=== PATIENT | male | born 1945 | race Two or more races ===

== ENCOUNTER 2023-08-23 13:11 | Emergency (ER) | payer OTHER, MEDICAID ==
[~2023-08-23] VITALS: Ht 160 cm; Wt 61.9 kg
[2023-08-23] MEDS ORDERED: SODIUM CHLORIDE 0.9% 1,000 ML IV ONE (13:45)
[2023-08-23 14:21] LABS: Basophils # (auto) 0 10 ^3/uL (0-0.2); Basophils % (auto) 0.2 % (0.0-2.0); Eosinophils # (auto) 0.1 10 ^3/uL (0-0.8); Eosinophils % (auto) 1.1 % (0.0-7.0); Hematocrit 43.7 % (41.0-53.0); Hemoglobin 15.3 g/dL (13.5-17.5); Lymphocytes # (auto) 3.6 10 ^3/uL (0.4-5.4); Lymphocytes % (auto) 34.2 % (10.0-50.0); Mean Corpuscular Hemoglobin 31.7 pg (28.0-32.0); Mean Corpuscular Hgb Conc. 34.9 g/dL (32.0-36.0); Mean Corpuscular Volume 90.9 fL (80.0-100.0); Monocytes # (auto) 0.7 10 ^3/uL (0-1.3); Monocytes % (auto) 6.9 % (0.0-12.0); Neutrophils # (auto) 6.1 10 ^3/uL (1.6-8.6); Neutrophils % (auto) 57.6 % (37.0-80.0); Nucleated Red Blood Cells % 0.1 %; Red Blood Cells 4.81 10^6/uL (4.5-5.90); Red Cell Distribution Width 12.7 % (11.8-14.3); White Blood Cell 10.6 10^3/uL (4.4-10.8)
[2023-08-23 14:27] VITALS: BP 146/99; PULSE 103; RESP 18; O2SAT 99
[2023-08-23 14:45] LABS: Alanine Aminotransferase 21 U/L (7-40); Albumin 3.9 g/dL (3.2-4.8); Alkaline Phosphatase 84 U/L (46-116); Anion Gap 9 (5-15); Aspartate Aminotransferase 24 U/L (13-40); BUN/Creatinine Ratio 33.9 (10.0-20.0); Bilirubin, Total 1.6 mg/dL (0.2-1.0); Blood Urea Nitrogen 38 mg/dL (9-23); Calcium 9.1 mg/dL (8.5-10.1); Carbon Dioxide 29 mmol/L (20-30); Chloride 98 mmol/L (98-107); Glucose 203 mg/dL (74-106); Potassium 3.8 mmol/L (3.5-5.1); Sodium 136 mmol/L (136-145)
== END 2023-08-24 00:47 | disposition left against medical advice (07) ==
LOC: ER 13:11
DX: K59.00 Constipation, unspecified (principal); Z53.21 Procedure and treatment not carried out due to patient leaving prior to being seen by health care provider
CPT/HCPCS: 36415; 74176; 80053; 84484; 85025

== ENCOUNTER 2023-09-04 10:15 | Emergency (ER) | payer OTHER, MEDICAID ==
[~2023-09-04] VITALS: Ht 160 cm; Wt 68.1 kg
[2023-09-04 13:08] LABS: Basophils # (auto) 0 10 ^3/uL (0-0.2); Basophils % (auto) 0.3 % (0.0-2.0); Eosinophils # (auto) 0 10 ^3/uL (0-0.8); Eosinophils % (auto) 0.2 % (0.0-7.0); Hematocrit 47.3 % (41.0-53.0); Hemoglobin 16.7 g/dL (13.5-17.5); Lymphocytes # (auto) 1.9 10 ^3/uL (0.4-5.4); Lymphocytes % (auto) 25.1 % (10.0-50.0); Mean Corpuscular Hemoglobin 31.6 pg (28.0-32.0); Mean Corpuscular Hgb Conc. 35.3 g/dL (32.0-36.0); Mean Corpuscular Volume 89.4 fL (80.0-100.0); Monocytes # (auto) 0.4 10 ^3/uL (0-1.3); Monocytes % (auto) 5.2 % (0.0-12.0); Neutrophils # (auto) 5.2 10 ^3/uL (1.6-8.6); Neutrophils % (auto) 69.2 % (37.0-80.0); Nucleated Red Blood Cells % 0.5 %; Red Blood Cells 5.29 10^6/uL (4.5-5.90); Red Cell Distribution Width 12.7 % (11.8-14.3); White Blood Cell 7.5 10^3/uL (4.4-10.8)
[2023-09-04] MEDS ORDERED: METOCLOPRAMIDE HCL 5MG/ml INJ 2ml VIAL IV ONE (13:15)
[2023-09-04] MEDS ORDERED: SODIUM CHLORIDE 0.9% 1,000 ML IV ONE (13:15)
[2023-09-04] MEDS ORDERED: SODIUM CHLORIDE 0.9% 500 ML IVB ONE (13:15)
[2023-09-04] MEDS ORDERED: KETOROLAC TROMETH 30 MG/ML 1ML VIAL IV ONE (13:15)
[2023-09-04 13:25] LABS: Alanine Aminotransferase 16 U/L (7-40); Albumin 4.3 g/dL (3.2-4.8); Alkaline Phosphatase 90 U/L (46-116); Anion Gap 9 (5-15); Aspartate Aminotransferase 20 U/L (13-40); BUN/Creatinine Ratio 16.5 (10.0-20.0); Blood Urea Nitrogen 16 mg/dL (9-23); Calcium 9.4 mg/dL (8.7-10.4); Carbon Dioxide 28 mmol/L (20-30); Chloride 98 mmol/L (98-107); Glucose 203 mg/dL (74-106); Lipase 39 U/L (12-53); Magnesium 2.3 mg/dL (1.6-2.6); Potassium 3.4 mmol/L (3.5-5.1); Sodium 135 mmol/L (136-145)
[2023-09-04 13:26] LABS: Bilirubin, Total 2.1 mg/dL (0.2-1.0)
[2023-09-04 13:49] LABS: Amylase 47 U/L (30-118)
[2023-09-04 17:00] VITALS: PULSE 93; RESP 20; O2SAT 96
[2023-09-04] MEDS ORDERED: PANT1INJ3 IV (17:12)
[2023-09-04] MEDS ORDERED: METO-281 PO (17:12)
[2023-09-04] MEDS ORDERED: OLME40TA78 PO (17:12)
[2023-09-04] MEDS ORDERED: METF-490 PO (17:12)
[2023-09-04] MEDS ORDERED: TAMS-35 PO (17:12)
[2023-09-04] MEDS ORDERED: CEFD300C2 PO (17:12)
[2023-09-04 19:35] VITALS: PULSE 84; RESP 19; O2SAT 95
[2023-09-04 22:10] VITALS: BP 127/60; PULSE 75; RESP 17; O2SAT 97
== END 2023-09-04 22:22 | disposition home or self-care (01) ==
LOC: ER 10:15
DX: K80.20 Calculus of gallbladder without cholecystitis without obstruction (principal); K29.70 Gastritis, unspecified, without bleeding; E11.65 Type 2 diabetes mellitus with hyperglycemia; I10 Essential (primary) hypertension; K40.20 Bilateral inguinal hernia, without obstruction or gangrene, not specified as recurrent; E87.6 Hypokalemia; E80.6 Other disorders of bilirubin metabolism; Z86.73 Personal history of transient ischemic attack (TIA), and cerebral infarction without residual deficits
CPT/HCPCS: 36415; 76705; 80053; 82150; 83690; 83735; 84484; 85025; 93005; 96361; 96374; 96375; 99285; J1885; J2765; J7030; J7040

== ENCOUNTER 2023-09-09 11:19 | Inpatient (IN) | payer OTHER, MEDICAID ==
[~2023-09-09] VITALS: Ht 160 cm; Wt 68.5 kg
[~2023-09-09 11:19] MED LIST: CEFD300C2 PO; METF-490 PO; METO-281 PO; OLME40TA78 PO; PANT1INJ3 IV; TAMS-35 PO
[2023-09-09] MEDS ORDERED: OCTREOTIDE ACETATE 100 MCG in SODIUM CHL 0.9% 50 ML IV ONE (12:15)
[2023-09-09 12:18] LABS: Basophils # (auto) 0 10 ^3/uL (0-0.2); Basophils % (auto) 0.1 % (0.0-2.0); Eosinophils # (auto) 0.1 10 ^3/uL (0-0.8); Eosinophils % (auto) 1.5 % (0.0-7.0); Hematocrit 41.1 % (41.0-53.0); Hemoglobin 14.3 g/dL (13.5-17.5); Lymphocytes # (auto) 2.4 10 ^3/uL (0.4-5.4); Lymphocytes % (auto) 41.9 % (10.0-50.0); Mean Corpuscular Hemoglobin 31.3 pg (28.0-32.0); Mean Corpuscular Hgb Conc. 34.8 g/dL (32.0-36.0); Mean Corpuscular Volume 89.8 fL (80.0-100.0); Monocytes # (auto) 0.3 10 ^3/uL (0-1.3); Monocytes % (auto) 5.8 % (0.0-12.0); Neutrophils # (auto) 2.8 10 ^3/uL (1.6-8.6); Neutrophils % (auto) 50.7 % (37.0-80.0); Nucleated Red Blood Cells % 0.2 %; Red Blood Cells 4.58 10^6/uL (4.5-5.90); White Blood Cell 5.6 10^3/uL (4.4-10.8)
[2023-09-09 12:35] LABS: Alanine Aminotransferase 17 U/L (7-40); Albumin 3.7 g/dL (3.2-4.8); Alkaline Phosphatase 78 U/L (46-116); Anion Gap 8 (5-15); Aspartate Aminotransferase 16 U/L (13-40); BUN/Creatinine Ratio 19.5 (10.0-20.0); Blood Urea Nitrogen 22 mg/dL (9-23); Carbon Dioxide 29 mmol/L (20-30); Chloride 100 mmol/L (98-107); Glucose 232 mg/dL (74-106); Lipase 35 U/L (12-53); Magnesium 1.9 mg/dL (1.6-2.6); Potassium 3.5 mmol/L (3.5-5.1); Sodium 137 mmol/L (136-145)
[2023-09-09 12:36] LABS: Bilirubin, Total 1.6 mg/dL (0.2-1.0); INR 1.07 (0.9-1.15); Prothrombin Time 11.2 sec (9.3-11.8); Total Protein 6.6 g/dL (5.7-8.2)
[2023-09-09 13:22] VITALS: PULSE 85; RESP 15; O2SAT 98
[2023-09-09] MEDS ORDERED: PANTOPRAZOLE 80 MG in SODIUM CHL 0.9% 100 ML IV ONE (13:30)
[2023-09-09] MEDS ORDERED: PANTOPRAZOLE 40mg/50ML NS AE 50 ML IV ONE (13:30)
[2023-09-09] MEDS: OCTREOTIDE ACETATE 500 MCG in SODIUM CHL 0.9% 99 ML IV SCH (14:02)
[2023-09-09 19:30] VITALS: PULSE 90; RESP 16; O2SAT 97
[2023-09-09] MEDS: SODIUM CHLORIDE 0.9% 1,000 ML IV SCH (19:45)
[2023-09-09] MEDS ORDERED: DEXTROSE (50%) 50ML SYRG IV PRN (19:45)
[2023-09-09 20:43] LABS: Blood Alcohol < 3.0 mg/dL (<10)
[2023-09-09 20:45] LABS: Phosphorus 3.3 mg/dL (2.4-5.1)
[2023-09-09 20:49] LABS: Free T4 (Free Thyroxine) 1.33 ng/dL (0.89-1.76)
[2023-09-09 21:11] LABS: Erythrocyte Sedimentation Rate 11 mm/hr (0-20)
[2023-09-09] MEDS ORDERED: amLODIPine BESYLATE 5 MG TAB PO ONE (23:30)
[2023-09-09] MEDS ORDERED: OCTREOTIDE ACETATE 500 MCG/ML VL ONE (23:54)
[2023-09-09 23:59] LABS: Urine Bacteria NONE SEEN /hpf (None Seen); Urine Blood Negative /uL (Negative); Urine Clarity Clear (Clear); Urine Color Yellow (Yellow); Urine Hyaline Cast MOD /lpf (0 - 2); Urine Mucus FEW (None Seen); Urine Protein, UAD TRACE (Negative); Urine Specific Gravity 1.021 (1.001-1.035); Urine WBC 8 /hpf (0 - 3); Urine pH 5.5 (5.0-8.0)
[2023-09-10 00:04] LABS: Amphetamine Screen, Urine Neg (NEGATIVE); Barbiturate Scree,Urine Neg (NEGATIVE); Benzodiazephine Screen, Urine Neg (NEGATIVE); Cocaine Screen, Urine Neg (NEGATIVE); Opiate Scree,Urine Neg (NEGATIVE)
[2023-09-10 00:05] LABS: Cannabinoid Screen, Urine Neg (NEGATIVE); Phencyclidine Screen, Urine Neg (NEGATIVE)
[2023-09-10] MEDS: OCTREOTIDE ACETATE 500 MCG in SODIUM CHL 0.9% 99 ML IV SCH ×3 (00:09→18:41)
[2023-09-10] MEDS: ACCU-CHEK COMFORT CURVE STRIP VI SCH ×5 (00:18→23:07)
[2023-09-10] MEDS: hydrALAZINE HCL 20 MG/ML VL IV PRN ×2 (03:23→17:09)
[2023-09-10] MEDS: SODIUM CHLORIDE 0.9% 1,000 ML IV SCH ×3 (05:45→23:07)
[2023-09-10] MEDS: InsuLIN REG 1unit/0.01ml Soln (100units/ml) SC SCH ×5 (06:18→23:07)
[2023-09-10] MEDS: PANTOPRAZOLE 40 MG/10 ML VIAL INJ IV SCH ×2 (10:06→23:00)
[2023-09-10 11:22] LABS: Basophils # (auto) 0 10 ^3/uL (0-0.2); Eosinophils # (auto) 0.1 10 ^3/uL (0-0.8); Eosinophils % (auto) 2.6 % (0.0-7.0); Hematocrit 39.8 % (41.0-53.0); Hemoglobin 13.6 g/dL (13.5-17.5); Lymphocytes # (auto) 2.2 10 ^3/uL (0.4-5.4); Lymphocytes % (auto) 40.6 % (10.0-50.0); Mean Corpuscular Hgb Conc. 34.1 g/dL (32.0-36.0); Mean Corpuscular Volume 90.9 fL (80.0-100.0); Monocytes # (auto) 0.5 10 ^3/uL (0-1.3); Monocytes % (auto) 8.5 % (0.0-12.0); Neutrophils # (auto) 2.6 10 ^3/uL (1.6-8.6); Neutrophils % (auto) 48.3 % (37.0-80.0); Nucleated Red Blood Cells % 0.2 %; Red Blood Cells 4.38 10^6/uL (4.5-5.90); Red Cell Distribution Width 12.8 % (11.8-14.3); White Blood Cell 5.4 10^3/uL (4.4-10.8)
[2023-09-10 11:37] LABS: Alanine Aminotransferase 14 U/L (7-40); Alkaline Phosphatase 60 U/L (46-116); Calcium 8.6 mg/dL (8.5-10.1); Carbon Dioxide 27 mmol/L (20-30); Chloride 108 mmol/L (98-107); Glucose 96 mg/dL (74-106)
[2023-09-10 11:38] LABS: Albumin 3.3 g/dL (3.2-4.8); Anion Gap 6 (5-15); Aspartate Aminotransferase 16 U/L (13-40); BUN/Creatinine Ratio 14.1 (10.0-20.0); Bilirubin, Total 1.6 mg/dL (0.2-1.0); Potassium 3.3 mmol/L (3.5-5.1); Sodium 141 mmol/L (136-145); Total Protein 5.9 g/dL (5.7-8.2)
[2023-09-10] MEDS: LOSARTAN POTASSIUM 25 MG TAB PO SCH (11:42)
[2023-09-10 11:43] LABS: Blood Urea Nitrogen 9 mg/dL (9-23)
[2023-09-10] MEDS ORDERED: ASPirin 325 MG TAB PO ONE (12:00)
[2023-09-10] MEDS: ASPirin 81 mg TAB PO SCH (12:00)
[2023-09-10] MEDS ORDERED: IOHEXOL 350 MG/ML 100ML IJ ONE (12:08)
[2023-09-10] MEDS ORDERED: POTASSIUM CHL 20 Meq TABLET PO ONE (13:30)
[2023-09-10] MEDS: TAMSULOSIN HYDROCHLORIDE 0.4 MG CAP PO SCH (17:02)
[2023-09-10 18:36] LABS: Hematocrit 42.3 % (41.0-53.0); Hemoglobin 14.6 g/dL (13.5-17.5)
[2023-09-10 20:00] VITALS: PULSE 92; RESP 17; O2SAT 93
[2023-09-10 22:42] VITALS: PULSE 95; RESP 18; O2SAT 95
[2023-09-11] VITALS (7 sets, daily range): BP systolic 112–154; BP diastolic 67–87; PULSE 71–115; RESP 17–20; TEMP 97.5–98.7; O2SAT 95–99
[2023-09-11] MEDS ORDERED: MORPHINE SULFATE INJ 2 MG/ml SYRG IV PRN (00:15)
[2023-09-11 01:02] LABS: Hematocrit 40.5 % (41.0-53.0); Hemoglobin 14.2 g/dL (13.5-17.5)
[2023-09-11 03:06] LABS: PSA Free 0.57 ng/mL; Prostate Specific Antigen 2.2 ng/mL (0.0-4.0)
[2023-09-11 03:06] LABS: RPR Non Reactive (Non Reactive)
[2023-09-11] MEDS: OCTREOTIDE ACETATE 500 MCG in SODIUM CHL 0.9% 99 ML IV SCH ×3 (03:53→23:43)
[2023-09-11] MEDS: InsuLIN REG 1unit/0.01ml Soln (100units/ml) SC SCH ×4 (05:56→23:35)
[2023-09-11] MEDS: ACCU-CHEK COMFORT CURVE STRIP VI SCH ×4 (05:56→23:34)
[2023-09-11 06:41] LABS: Basophils # (auto) 0 10 ^3/uL (0-0.2); Basophils % (auto) 0.2 % (0.0-2.0); Eosinophils # (auto) 0.1 10 ^3/uL (0-0.8); Eosinophils % (auto) 1.6 % (0.0-7.0); Hematocrit 39.6 % (41.0-53.0); Hemoglobin 13.4 g/dL (13.5-17.5); Lymphocytes # (auto) 2.1 10 ^3/uL (0.4-5.4); Lymphocytes % (auto) 40.1 % (10.0-50.0); Mean Corpuscular Hemoglobin 30.7 pg (28.0-32.0); Mean Corpuscular Hgb Conc. 33.9 g/dL (32.0-36.0); Mean Corpuscular Volume 90.7 fL (80.0-100.0); Monocytes # (auto) 0.4 10 ^3/uL (0-1.3); Monocytes % (auto) 8.1 % (0.0-12.0); Neutrophils # (auto) 2.6 10 ^3/uL (1.6-8.6); Nucleated Red Blood Cells % 0.1 %; Red Blood Cells 4.37 10^6/uL (4.5-5.90); White Blood Cell 5.3 10^3/uL (4.4-10.8)
[2023-09-11 06:55] LABS: Alkaline Phosphatase 65 U/L (46-116); Anion Gap 8 (5-15); BUN/Creatinine Ratio 10.4 (10.0-20.0); Blood Urea Nitrogen 7 mg/dL (9-23); Carbon Dioxide 26 mmol/L (20-30); Chloride 107 mmol/L (98-107); Glucose 127 mg/dL (74-106); Potassium 3.3 mmol/L (3.5-5.1); Sodium 141 mmol/L (136-145)
[2023-09-11 06:56] LABS: Albumin 3.2 g/dL (3.2-4.8); Aspartate Aminotransferase 16 U/L (13-40); Bilirubin, Total 1.9 mg/dL (0.2-1.0); Total Protein 5.8 g/dL (5.7-8.2)
[2023-09-11 07:06] LABS: Homocyst(e)ine 19.3 umol/L (0.0-19.2)
[2023-09-11 07:13] LABS: Alanine Aminotransferase 9 U/L (7-40)
[2023-09-11] MEDS: ASPirin 81 mg TAB PO SCH (09:37)
[2023-09-11] MEDS: PANTOPRAZOLE 40 MG/10 ML VIAL INJ IV SCH ×2 (09:43→23:16)
[2023-09-11] MEDS: LOSARTAN POTASSIUM 25 MG TAB PO SCH (09:43)
[2023-09-11] MEDS: SODIUM CHLORIDE 0.9% 1,000 ML IV SCH ×2 (09:45→20:47)
[2023-09-11 11:51] LABS: Hematocrit 39.6 % (41.0-53.0); Hemoglobin 13.6 g/dL (13.5-17.5)
[2023-09-11] MEDS: hydrALAZINE HCL 20 MG/ML VL IV PRN (17:02)
[2023-09-11] MEDS: TAMSULOSIN HYDROCHLORIDE 0.4 MG CAP PO SCH (17:42)
[2023-09-11] MEDS ORDERED: ONDANSETRON HCL 4 MG/2 ML VIAL IV PRN (18:45)
[2023-09-11] MEDS ORDERED: POTASSIUM CHLORIDE 40 MEQ, LIDOCAINE 1% (LOCAL ANESTH.) 4 ML in SODIUM CHL 0.9% 250 ML IV ONE (19:15)
[2023-09-11 19:24] LABS: Hematocrit 46.5 % (41.0-53.0); Hemoglobin 15.4 g/dL (13.5-17.5)
[2023-09-11] MEDS ORDERED: PROMETHAZINE HCL 25 MG/ML 1ML IV ONE (23:00)
[2023-09-11] MEDS: POTASSIUM CHL 20MEQ/100ML 100 ML IV SCH (23:16)
[2023-09-12] VITALS (7 sets, daily range): BP systolic 104–177; BP diastolic 69–88; PULSE 26–100; RESP 16–20; TEMP 96.8–98.4; O2SAT 96–97
[2023-09-12] MEDS: POTASSIUM CHL 20MEQ/100ML 100 ML IV SCH (02:04)
[2023-09-12] MEDS: ACCU-CHEK COMFORT CURVE STRIP VI SCH ×3 (05:04→18:13)
[2023-09-12] MEDS: SODIUM CHLORIDE 0.9% 1,000 ML IV SCH ×2 (05:04→18:16)
[2023-09-12] MEDS: InsuLIN REG 1unit/0.01ml Soln (100units/ml) SC SCH ×3 (05:05→18:00)
[2023-09-12 06:18] LABS: Basophils # (auto) 0 10 ^3/uL (0-0.2); Basophils % (auto) 0.2 % (0.0-2.0); Eosinophils # (auto) 0 10 ^3/uL (0-0.8); Eosinophils % (auto) 0.3 % (0.0-7.0); Hematocrit 38.5 % (41.0-53.0); Hemoglobin 13.3 g/dL (13.5-17.5); Lymphocytes # (auto) 1.9 10 ^3/uL (0.4-5.4); Lymphocytes % (auto) 32.9 % (10.0-50.0); Mean Corpuscular Hemoglobin 31.4 pg (28.0-32.0); Mean Corpuscular Hgb Conc. 34.5 g/dL (32.0-36.0); Monocytes # (auto) 0.3 10 ^3/uL (0-1.3); Monocytes % (auto) 5.9 % (0.0-12.0); Neutrophils # (auto) 3.5 10 ^3/uL (1.6-8.6); Neutrophils % (auto) 60.7 % (37.0-80.0); Nucleated Red Blood Cells % 0.2 %; Red Blood Cells 4.23 10^6/uL (4.5-5.90); Red Cell Distribution Width 12.8 % (11.8-14.3); White Blood Cell 5.7 10^3/uL (4.4-10.8)
[2023-09-12 07:12] LABS: Alkaline Phosphatase 59 U/L (46-116); Anion Gap 8 (5-15); Aspartate Aminotransferase 14 U/L (13-40); BUN/Creatinine Ratio 12.3 (10.0-20.0); Blood Urea Nitrogen 8 mg/dL (9-23); Calcium 7.8 mg/dL (8.7-10.4); Carbon Dioxide 22 mmol/L (20-30); Chloride 108 mmol/L (98-107); Glucose 141 mg/dL (74-106); Magnesium 1.5 mg/dL (1.6-2.6); Potassium 4.1 mmol/L (3.5-5.1); Sodium 138 mmol/L (136-145)
[2023-09-12 07:13] LABS: Total Protein 5.4 g/dL (5.7-8.2)
[2023-09-12 07:23] LABS: Alanine Aminotransferase < 9 U/L (7-40)
[2023-09-12 08:34] LABS: Bilirubin, Total 1.5 mg/dL (0.2-1.0)
[2023-09-12] MEDS: ASPirin 81 mg TAB PO SCH (11:09)
[2023-09-12] MEDS: OCTREOTIDE ACETATE 500 MCG in SODIUM CHL 0.9% 99 ML IV SCH ×3 (11:09→22:47)
[2023-09-12] MEDS: PANTOPRAZOLE 40 MG/10 ML VIAL INJ IV SCH ×2 (11:09→22:33)
[2023-09-12] MEDS: LOSARTAN POTASSIUM 25 MG TAB PO SCH (11:09)
[2023-09-12] MEDS: TAMSULOSIN HYDROCHLORIDE 0.4 MG CAP PO SCH (18:16)
[2023-09-12] MEDS ORDERED: PROMETHAZINE HCL 25 MG/ML 1ML IV PRN (19:30)
[2023-09-12] MEDS ORDERED: POLYETHYLENE GLYCOL 17 GM PWDR PO PRN (19:30)
[2023-09-12] MEDS: hydrALAZINE HCL 20 MG/ML VL IV PRN (22:34)
[2023-09-13] MEDS: ACCU-CHEK COMFORT CURVE STRIP VI SCH ×4 (00:14→18:43)
[2023-09-13] MEDS ORDERED: SODIUM CHLORIDE 0.9% 500 ML IV ONE (00:15)
[2023-09-13] MEDS: SODIUM CHLORIDE 0.9% 1,000 ML IV SCH ×3 (00:41→21:52)
[2023-09-13 05:00] VITALS: BP 116/74; PULSE 86; RESP 17; TEMP 98; O2SAT 96
[2023-09-13] MEDS: InsuLIN REG 1unit/0.01ml Soln (100units/ml) SC SCH ×4 (06:00→18:00)
[2023-09-13 08:00] VITALS: PULSE 75; RESP 18
[2023-09-13 09:00] VITALS: BP 119/58; PULSE 77; RESP 17; TEMP 98.6; O2SAT 93
[2023-09-13] MEDS: ASPirin 81 mg TAB PO SCH (09:15)
[2023-09-13] MEDS: PANTOPRAZOLE 40 MG/10 ML VIAL INJ IV SCH ×2 (09:15→21:51)
[2023-09-13] MEDS: LOSARTAN POTASSIUM 25 MG TAB PO SCH (09:16)
[2023-09-13 11:21] LABS: Hepatitis B Core Total AB Negative (Negative)
[2023-09-13 12:53] VITALS: BP 109/62; PULSE 87; RESP 17; TEMP 97.4; O2SAT 98
[2023-09-13 17:00] VITALS: BP 128/80; PULSE 96; RESP 17; TEMP 97.9; O2SAT 100
[2023-09-13] MEDS: OCTREOTIDE ACETATE 500 MCG in SODIUM CHL 0.9% 99 ML IV SCH (18:42)
[2023-09-13] MEDS: TAMSULOSIN HYDROCHLORIDE 0.4 MG CAP PO SCH (18:42)
[2023-09-13 22:00] VITALS: BP 175/95; PULSE 81; RESP 16; TEMP 97.6; O2SAT 95
[2023-09-14] VITALS (9 sets, daily range): BP systolic 117–183; BP diastolic 53–87; PULSE 69–94; RESP 16–18; TEMP 97.6–98.4; O2SAT 96–98
[2023-09-14] MEDS: ACCU-CHEK COMFORT CURVE STRIP VI SCH ×5 (01:03→23:12)
[2023-09-14] MEDS: InsuLIN REG 1unit/0.01ml Soln (100units/ml) SC SCH ×5 (01:03→23:12)
[2023-09-14 04:33] LABS: Urine Bacteria NONE SEEN /hpf (None Seen); Urine Blood Negative /uL (Negative); Urine Clarity Clear (Clear); Urine Color Yellow (Yellow); Urine Protein, UAD Negative (Negative); Urine Urobilinogen Normal (Negative); Urine WBC <1 /hpf (0 - 3)
[2023-09-14] MEDS: OCTREOTIDE ACETATE 500 MCG in SODIUM CHL 0.9% 99 ML IV SCH (05:12)
[2023-09-14 06:51] LABS: Alkaline Phosphatase 51 U/L (46-116); Anion Gap 10 (5-15); Aspartate Aminotransferase 21 U/L (13-40); BUN/Creatinine Ratio 10.8 (10.0-20.0); Blood Urea Nitrogen 7 mg/dL (9-23); Calcium 8.2 mg/dL (8.5-10.1); Carbon Dioxide 23 mmol/L (20-30); Chloride 106 mmol/L (98-107); Cholesterol 107 mg/dL (< 200); Glucose 69 mg/dL (74-106); HDL Cholesterol 28 mg/dL (40-59); LDL Cholesterol 61 mg/dL (< 100); Potassium 3.3 mmol/L (3.5-5.1); Sodium 139 mmol/L (136-145); Triglycerides 73 mg/dL (< 150)
[2023-09-14 06:52] LABS: Bilirubin, Total 1.9 mg/dL (0.2-1.0); Total Protein 5.3 g/dL (5.7-8.2)
[2023-09-14 06:54] LABS: Alanine Aminotransferase 9 U/L (7-40)
[2023-09-14 07:04] LABS: Magnesium 1.5 mg/dL (1.6-2.6)
[2023-09-14 07:08] LABS: Basophils # (auto) 0 10 ^3/uL (0-0.2); Basophils % (auto) 0.3 % (0.0-2.0); Eosinophils # (auto) 0.1 10 ^3/uL (0-0.8); Eosinophils % (auto) 1.6 % (0.0-7.0); Hematocrit 35.9 % (41.0-53.0); Hemoglobin 12.5 g/dL (13.5-17.5); Lymphocytes # (auto) 2.4 10 ^3/uL (0.4-5.4); Lymphocytes % (auto) 45.6 % (10.0-50.0); Mean Corpuscular Hemoglobin 31.5 pg (28.0-32.0); Mean Corpuscular Hgb Conc. 34.8 g/dL (32.0-36.0); Mean Corpuscular Volume 90.6 fL (80.0-100.0); Monocytes # (auto) 0.4 10 ^3/uL (0-1.3); Monocytes % (auto) 7.5 % (0.0-12.0); Neutrophils # (auto) 2.4 10 ^3/uL (1.6-8.6); Nucleated Red Blood Cells % 0.2 %; Red Blood Cells 3.96 10^6/uL (4.5-5.90); Red Cell Distribution Width 12.7 % (11.8-14.3); White Blood Cell 5.3 10^3/uL (4.4-10.8)
[2023-09-14] MEDS ORDERED: POTASSIUM CHL 20 Meq TABLET PO ONE (07:15)
[2023-09-14] MEDS: ASPirin 81 mg TAB PO SCH (09:57)
[2023-09-14] MEDS: hydrALAZINE HCL 20 MG/ML VL IV PRN (09:57)
[2023-09-14] MEDS: PANTOPRAZOLE 40 MG/10 ML VIAL INJ IV SCH ×2 (09:57→23:11)
[2023-09-14] MEDS: LOSARTAN POTASSIUM 25 MG TAB PO SCH (09:58)
[2023-09-14] MEDS ORDERED: MAGNESIUM OXIDE 400 MG TAB PO SCH (10:00)
[2023-09-14] MEDS: MAGNESIUM SULFATE 1GM/100ML 100 ML IV SCH ×2 (11:43→12:00)
[2023-09-14] MEDS: D5W/SOD CHL 0.45%/KCL 20MEQ 1,000 ML IV SCH (11:43)
[2023-09-14] MEDS: TAMSULOSIN HYDROCHLORIDE 0.4 MG CAP PO SCH (17:36)
[2023-09-14] MEDS ORDERED: LORazepam 2MG/ML-1ML VIAL IV PRN (20:15)
[2023-09-15] VITALS (11 sets, daily range): BP systolic 112–156; BP diastolic 58–87; PULSE 58–93; RESP 12–21; TEMP 97.6–98.6; O2SAT 98–100
[2023-09-15] MEDS: D5W/SOD CHL 0.45%/KCL 20MEQ 1,000 ML IV SCH ×2 (02:00→16:17)
[2023-09-15 06:15] LABS: Alanine Aminotransferase 12 U/L (7-40); Alkaline Phosphatase 56 U/L (46-116); Anion Gap 7 (5-15); Aspartate Aminotransferase 22 U/L (13-40); BUN/Creatinine Ratio 12.3 (10.0-20.0); Bilirubin, Total 1.4 mg/dL (0.2-1.0); Blood Urea Nitrogen 8 mg/dL (9-23); Calcium 8.2 mg/dL (8.5-10.1); Carbon Dioxide 25 mmol/L (20-30); Chloride 107 mmol/L (98-107); Glucose 164 mg/dL (74-106); Potassium 3.4 mmol/L (3.5-5.1); Sodium 139 mmol/L (136-145); Total Protein 5.2 g/dL (5.7-8.2)
[2023-09-15 06:17] LABS: Basophils # (auto) 0 10 ^3/uL (0-0.2); Basophils % (auto) 0.1 % (0.0-2.0); Eosinophils # (auto) 0.1 10 ^3/uL (0-0.8); Eosinophils % (auto) 1.4 % (0.0-7.0); Hematocrit 35.3 % (41.0-53.0); Hemoglobin 12.3 g/dL (13.5-17.5); Lymphocytes % (auto) 41.9 % (10.0-50.0); Mean Corpuscular Hgb Conc. 34.8 g/dL (32.0-36.0); Mean Corpuscular Volume 89.1 fL (80.0-100.0); Monocytes # (auto) 0.4 10 ^3/uL (0-1.3); Neutrophils # (auto) 2.3 10 ^3/uL (1.6-8.6); Neutrophils % (auto) 47.6 % (37.0-80.0); Nucleated Red Blood Cells % 0.1 %; Red Blood Cells 3.97 10^6/uL (4.5-5.90); Red Cell Distribution Width 13.1 % (11.8-14.3); White Blood Cell 4.8 10^3/uL (4.4-10.8)
[2023-09-15] MEDS: InsuLIN REG 1unit/0.01ml Soln (100units/ml) SC SCH ×3 (06:25→18:20)
[2023-09-15] MEDS: ACCU-CHEK COMFORT CURVE STRIP VI SCH ×3 (06:26→18:13)
[2023-09-15 06:44] LABS: Magnesium 1.7 mg/dL (1.6-2.6)
[2023-09-15] MEDS ORDERED: MAGNESIUM SULFATE 1GM/100ML 100 ML IV ONE (08:15)
[2023-09-15] MEDS ORDERED: POTASSIUM CHL 20 Meq TABLET PO ONE (08:15)
[2023-09-15] MEDS ORDERED: MIDAZOLAM HCL 2MG/2ML 2ml VIAL (1mg/ml) IV ONE (08:30)
[2023-09-15] MEDS ORDERED: LIDOCAINE VISCOUS 2% 15ML UD MT ONE (08:30)
[2023-09-15] MEDS ORDERED: fentaNYL CITRATE 100 MCG/2 ML VL IV ONE (08:30)
[2023-09-15] MEDS: AMIODARONE HCL 200 MG TAB PO SCH ×2 (10:00→22:41)
[2023-09-15] MEDS: METOPROLOL TARTRATE 25 MG TAB PO SCH ×2 (10:00→22:41)
[2023-09-15] MEDS: ASPirin 81 mg TAB PO SCH (10:00)
[2023-09-15] MEDS: PANTOPRAZOLE 40 MG/10 ML VIAL INJ IV SCH ×2 (10:00→22:44)
[2023-09-15] MEDS ORDERED: FLUMAZENIL 0.1 MG/ML INJ 10ML MDV IV ONE (10:09)
[2023-09-15] MEDS ORDERED: NALOXONE HCL 0.4 MG/ML VIAL ONE (10:09)
[2023-09-15] MEDS: TAMSULOSIN HYDROCHLORIDE 0.4 MG CAP PO SCH (18:13)
[2023-09-16] VITALS (7 sets, daily range): BP systolic 100–135; BP diastolic 54–74; PULSE 67–80; RESP 17–18; TEMP 97.7–98.1; O2SAT 94–100
[2023-09-16] MEDS: InsuLIN REG 1unit/0.01ml Soln (100units/ml) SC SCH ×5 (01:01→23:55)
[2023-09-16] MEDS: ACCU-CHEK COMFORT CURVE STRIP VI SCH ×5 (01:03→23:53)
[2023-09-16] MEDS: D5W/SOD CHL 0.45%/KCL 20MEQ 1,000 ML IV SCH ×2 (05:08→15:35)
[2023-09-16 06:19] LABS: Anion Gap 6 (5-15); Carbon Dioxide 25 mmol/L (20-30); Chloride 107 mmol/L (98-107); Potassium 3.6 mmol/L (3.5-5.1); Sodium 138 mmol/L (136-145)
[2023-09-16 06:20] LABS: Calcium 8.5 mg/dL (8.5-10.1)
[2023-09-16 06:21] LABS: Basophils # (auto) 0 10 ^3/uL (0-0.2); Basophils % (auto) 0.2 % (0.0-2.0); Eosinophils # (auto) 0.1 10 ^3/uL (0-0.8); Eosinophils % (auto) 0.7 % (0.0-7.0); Hematocrit 35.5 % (41.0-53.0); Hemoglobin 12.4 g/dL (13.5-17.5); Lymphocytes # (auto) 2.4 10 ^3/uL (0.4-5.4); Mean Corpuscular Hemoglobin 31.5 pg (28.0-32.0); Mean Corpuscular Volume 89.9 fL (80.0-100.0); Monocytes # (auto) 0.4 10 ^3/uL (0-1.3); Monocytes % (auto) 4.4 % (0.0-12.0); Neutrophils # (auto) 6.7 10 ^3/uL (1.6-8.6); Neutrophils % (auto) 69.7 % (37.0-80.0); Red Blood Cells 3.95 10^6/uL (4.5-5.90); Red Cell Distribution Width 13.1 % (11.8-14.3); White Blood Cell 9.6 10^3/uL (4.4-10.8)
[2023-09-16 06:25] LABS: BUN/Creatinine Ratio 10.9 (10.0-20.0); Blood Urea Nitrogen 7 mg/dL (9-23); Glucose 116 mg/dL (74-106)
[2023-09-16] MEDS ORDERED: SODIUM CHLORIDE 0.9% 500 ML IV ONE (09:00)
[2023-09-16] MEDS: ASPirin 81 mg TAB PO SCH (09:57)
[2023-09-16] MEDS: PANTOPRAZOLE 40 MG/10 ML VIAL INJ IV SCH ×2 (09:59→22:11)
[2023-09-16] MEDS: AMIODARONE HCL 200 MG TAB PO SCH ×2 (09:59→22:10)
[2023-09-16 13:38] LABS: Magnesium 1.7 mg/dL (1.6-2.6)
[2023-09-16] MEDS: TAMSULOSIN HYDROCHLORIDE 0.4 MG CAP PO SCH (18:01)
[2023-09-17] MEDS: D5W/SOD CHL 0.45%/KCL 20MEQ 1,000 ML IV SCH (04:55)
[2023-09-17 05:00] VITALS: BP 139/69; PULSE 69; RESP 18; TEMP 98; O2SAT 98
[2023-09-17] MEDS: ACCU-CHEK COMFORT CURVE STRIP VI SCH ×2 (05:47→12:19)
[2023-09-17] MEDS: InsuLIN REG 1unit/0.01ml Soln (100units/ml) SC SCH ×2 (05:48→12:21)
[2023-09-17 08:00] VITALS: PULSE 78; PULSE 82; RESP 18; O2SAT 98
[2023-09-17 08:30] VITALS: BP 139/70; PULSE 74; RESP 20; TEMP 97.8; O2SAT 98
[2023-09-17] MEDS: PANTOPRAZOLE 40 MG/10 ML VIAL INJ IV SCH (10:34)
[2023-09-17] MEDS: ASPirin 81 mg TAB PO SCH (10:35)
[2023-09-17] MEDS: AMIODARONE HCL 200 MG TAB PO SCH (10:35)
[2023-09-17] MEDS ORDERED: AMIO200T33 PO (11:51)
[2023-09-17] MEDS ORDERED: ASPI-325 PO (11:51)
[2023-09-17 13:48] VITALS: BP 126/63; PULSE 75; RESP 20; TEMP 36.6; O2SAT 96
[2023-09-17 14:00] VITALS: BP 132/61; PULSE 76; RESP 18; TEMP 98.3; O2SAT 97
[2023-09-20 13:50] LABS: Hepatitis A Total Antibody Positive (Negative); Hepatitis B Surface Antibody Negative (Negative)
[2023-09-20 13:51] LABS: Hepatitis B Surface Antigen Negative (Negative); Hepatitis C Antibody Negative (Negative)
== END 2023-09-17 16:23 | disposition hospice, home (50) | DRG 71 ==
LOC: ER 11:19 → TELE 19:57 → TELE-WESTW 09-10 21:42
PROVIDERS: ADMIT Nurse Practitioner Family; ATTEND Internal Medicine Geriatric Medicine
PROC: B24BZZ4 Ultrasonography of Heart with Aorta, Transesophageal (ICD-10-PCS; principal; 2023-09-15)
DX: G93.41 Metabolic encephalopathy (principal); I69.354 Hemiplegia and hemiparesis following cerebral infarction affecting left non-dominant side; K92.0 Hematemesis; R53.1 Weakness; K70.30 Alcoholic cirrhosis of liver without ascites; E11.65 Type 2 diabetes mellitus with hyperglycemia; E87.6 Hypokalemia; I16.0 Hypertensive urgency; K21.9 Gastro-esophageal reflux disease without esophagitis; N40.0 Benign prostatic hyperplasia without lower urinary tract symptoms; I65.22 Occlusion and stenosis of left carotid artery; I48.0 Paroxysmal atrial fibrillation; I10 Essential (primary) hypertension; Z82.49 Family history of ischemic heart disease and other diseases of the circulatory system; Z91.81 History of falling; I95.9 Hypotension, unspecified
CPT/HCPCS: 36415; 70250; 70360; 70450; 70460; 70491; 70540; 70551; 71045; 74018; 74176; 76705; 80048; 80053; 80061; 80307; 80320; 81001; 82140; 82607; 82962; 83036; 83090; 83690; 83735; 84100; 84154; 84439; 84443; 84484; 85014; 85018; 85025; 85610; 85652; 86592; 86704; 86706; 86708; 86803; 86850; 86900; 86901; 87081; 87340; 92610; 93005; 93306; 93312; 93886; 95819; 97110; 97116; 97163; 97530; 99152; C9113; G0378; J1815; J2250; J2405; J3480